=== PATIENT | male | born 1975 | race Caucasian/White ===

== ENCOUNTER 2021-06-08 15:32 | Emergency (ER) | payer BC | END 2021-06-08 16:25 | disposition left against medical advice (07) | LOC: VM.ED 15:32 | DX: Z53.21 Procedure and treatment not carried out due to patient leaving prior to being seen by health care provider (principal) ==

== ENCOUNTER 2022-07-13 08:24 | Emergency (ER) | payer BC ==
[2022-07-13] MEDS: HYDROmorphone 1 MG/ML Syringe SUBCUT ONE ×2 (08:49→08:55)
[2022-07-13] MEDS: Orphenadrine 60 MG/2 ML Inj IM ONE (08:54)
[2022-07-13] MEDS: Ketorolac 30 MG/ML SDV IM ONE (09:38)
[2022-07-13] MEDS ORDERED: predniSONE 20 MG Tab PO ONE (09:50)
[2022-07-13] MEDS: predniSONE 20 MG Tab PO ONE (09:51)
[2022-07-13] MEDS ORDERED: predniSONE 20 MG Tab ONE (09:54)
== END 2022-07-13 09:57 | disposition home or self-care (01) ==
LOC: VM.ED 08:24
DX: M62.830 Muscle spasm of back (principal); J45.909 Unspecified asthma, uncomplicated; K21.9 Gastro-esophageal reflux disease without esophagitis; Z88.1 Allergy status to other antibiotic agents; Z88.8 Allergy status to other drugs, medicaments and biological substances; Z79.899 Other long term (current) drug therapy
CPT/HCPCS: 96372; 99283; 99284; J1170; J1885; J2360; J7512

== ENCOUNTER 2023-05-18 15:09 | Emergency (ER) | payer BC ==
[2023-05-18] MEDS ORDERED: Orphenadrine 60 MG/2 ML Inj IM ONE (16:25)
[2023-05-18] MEDS ORDERED: Naloxone 0.4 MG/ML SDV IVPUSH PRN (16:25)
[2023-05-18] MEDS ORDERED: HYDROmorphone 1 MG/ML Syringe SUBCUT ONE (16:25)
== END 2023-05-18 17:30 | disposition home or self-care (01) ==
LOC: VM.ED 15:09
DX: M54.50 Low back pain, unspecified (principal); G89.29 Other chronic pain; J45.909 Unspecified asthma, uncomplicated; K21.9 Gastro-esophageal reflux disease without esophagitis; Z87.891 Personal history of nicotine dependence; Z79.899 Other long term (current) drug therapy; Z88.1 Allergy status to other antibiotic agents; Z88.8 Allergy status to other drugs, medicaments and biological substances
CPT/HCPCS: 72100; 96372; 99283; J1170; J2360